=== PATIENT | male | born 1970 ===

== ENCOUNTER 2016-07-14 13:36 | Emergency (ER) | payer MEDICAID, MEDICARE ==
[~2016-07-14] VITALS: Ht 167.6 cm; Wt 72.6 kg
[2016-07-14 14:07] VITALS: BP 117/76
[2016-07-14] MEDS ORDERED: TETRACAINE HCL 0.5% OPTH(EYE) SOLN 2ML LEFTEYE ONE (16:15)
[2016-07-14] MEDS ORDERED: FLUORESCEIN SOD 1 MG TEST STRIP LEFTEYE ONE (16:15)
== END 2016-07-14 17:01 | disposition home or self-care (01) ==
LOC: ER 14:36
DX: T15.92XA Foreign body on external eye, part unspecified, left eye, initial encounter (principal); Y93.89 Activity, other specified; Y99.8 Other external cause status; Y92.89 Other specified places as the place of occurrence of the external cause
CPT/HCPCS: 65205

== ENCOUNTER 2016-07-20 13:24 | Emergency (ER) | payer MEDICAID ==
[~2016-07-20] VITALS: Ht 167.6 cm; Wt 72.6 kg
[2016-07-20 13:36] VITALS: BP 123/83
== END 2016-07-20 17:42 | disposition home or self-care (01) ==
LOC: ER 13:27
DX: H10.32 Unspecified acute conjunctivitis, left eye (principal)